=== PATIENT | female | born 1930 | race Caucasian/White ===

== ENCOUNTER 2020-06-19 10:20 | Day surgery (SDC) | payer MEDICARE, OTHER ==
[2020-06-19] MEDS ORDERED: LIDOcaine 2% 5ml jelly ONE (11:46)
== END 2020-06-19 12:08 | disposition home or self-care (01) ==
LOC: WOUND CARE 10:20
PROVIDERS: ATTEND Nurse Practitioner
DX: S81.802A Unspecified open wound, left lower leg, initial encounter (principal); E11.622 Type 2 diabetes mellitus with other skin ulcer; L97.222 Non-pressure chronic ulcer of left calf with fat layer exposed; E11.36 Type 2 diabetes mellitus with diabetic cataract; I11.0 Hypertensive heart disease with heart failure; I50.9 Heart failure, unspecified; I87.2 Venous insufficiency (chronic) (peripheral); Z86.73 Personal history of transient ischemic attack (TIA), and cerebral infarction without residual deficits; Z87.891 Personal history of nicotine dependence; X58.XXXA Exposure to other specified factors, initial encounter; Y92.89 Other specified places as the place of occurrence of the external cause; Y93.89 Activity, other specified; Y99.8 Other external cause status
CPT/HCPCS: 97597; G0463

== ENCOUNTER 2020-07-03 14:45 | Day surgery (SDC) | payer OTHER ==
[2020-07-03] MEDS ORDERED: LIDOcaine 2% 5ml jelly ONE (15:00)
== END 2020-07-03 15:48 | disposition home or self-care (01) ==
LOC: WOUND CARE 14:45
PROVIDERS: ATTEND Nurse Practitioner
DX: S80.812D Abrasion, left lower leg, subsequent encounter (principal); E11.622 Type 2 diabetes mellitus with other skin ulcer; L97.222 Non-pressure chronic ulcer of left calf with fat layer exposed; E11.36 Type 2 diabetes mellitus with diabetic cataract; I11.0 Hypertensive heart disease with heart failure; I50.9 Heart failure, unspecified; I87.2 Venous insufficiency (chronic) (peripheral); Z86.73 Personal history of transient ischemic attack (TIA), and cerebral infarction without residual deficits; Z87.891 Personal history of nicotine dependence; X58.XXXD Exposure to other specified factors, subsequent encounter
CPT/HCPCS: 82948; 87070; 87075; 87077; 87102; 87186; 97597

== ENCOUNTER 2020-07-10 12:50 | Day surgery (SDC) | payer OTHER ==
[2020-07-10] MEDS ORDERED: LIDOcaine 2% 5ml jelly ONE (13:24)
== END 2020-07-10 14:06 | disposition home or self-care (01) ==
LOC: WOUND CARE 12:50
PROVIDERS: ATTEND Nurse Practitioner
DX: S80.812D Abrasion, left lower leg, subsequent encounter (principal); E11.622 Type 2 diabetes mellitus with other skin ulcer; L97.222 Non-pressure chronic ulcer of left calf with fat layer exposed; E11.36 Type 2 diabetes mellitus with diabetic cataract; I11.0 Hypertensive heart disease with heart failure; I50.9 Heart failure, unspecified; I87.2 Venous insufficiency (chronic) (peripheral); Z86.73 Personal history of transient ischemic attack (TIA), and cerebral infarction without residual deficits; Z87.891 Personal history of nicotine dependence; X58.XXXD Exposure to other specified factors, subsequent encounter
CPT/HCPCS: 36416; 82948; 97597